=== PATIENT | female | born 1980 | race Caucasian/White ===

== ENCOUNTER 2016-05-31 09:59 | Emergency (ER) | payer BC, OTHER ==
[~2016-05-31] VITALS: Ht 170.2 cm; Wt 83.3 kg
[~2016-05-31 09:59] MED LIST: BACL10TA PO; CLR10 PO; DOXE50CA3 PO; ESTR1.252 PO; FLV1 PO; LAMO150T32 PO; MULT-506 PO; OXCA600T2 PO; THIA100T11 PO
[2016-05-31 10:11] VITALS: TEMP 36.7; Ht 170.2 cm; Wt 83.3 kg
[2016-05-31] MEDS ORDERED: TRAZ100T29 PO (10:27)
[2016-05-31] MEDS ORDERED: KETOROLAC TROMETHAMINE 60 MG/2 ML VIAL IM STA (10:38)
--- NOTE | 2016-05-31 11:14 | DIAGNOSTIC IMAGING REPORT ---
L-SPINE MIN 4 VIEWS ROUTINE CLINICAL HISTORY: Right-sided lower back pain. Recent trauma. COMPARISON STUDY: No previous studies for comparison. FINDINGS: No fractures or subluxation are visualized. There are 5 lumbar type vertebral bodies. No destructive lesions are visualized. IMPRESSION: No fractures or subluxations identified Electronically signed by: Michael Alejo M.D. 05/31/2016 11:12 AM Dictated Date/Time: 05/31/2016 11:11 AM
[2016-05-31] MEDS ORDERED: CARI350T28 PO (11:31)
[2016-05-31] MEDS ORDERED: HYDR-5688 PO (11:31)
[2016-05-31 11:43] VITALS: BP 120/75; PULSE 88; O2SAT 99
--- NOTE | 2016-05-31 17:55 | EMERGENCY ROOM VISIT NOTE ---
ED Visit Note First contact with patient: 10:22 CHIEF COMPLAINT: Low back pain HISTORY OF PRESENT ILLNESS: This 36-year-old white female patient complains of pain in the low back which began 2 days ago. She states she fell and landed on her low back. She has a chronic history of back pain. The pain was gradual in onset, is now constant and worse with movement. Denies any bowel or bladder difficulties. There has been no leg numbness or weakness. No vomiting or abdominal pain. Positive prior history of similar pain. Her pain Is 10/10. No treatment yet. She states her is outside in the car. REVIEW OF SYSTEM: HEENT: No dizziness, visual problems, hearing loss, or tinnitus. There is no difficulty swallowing and no oral lesions are present. LYMPH: No adenopathy. PULMONARY: No cough, shortness of breath, sputum production or hemoptysis. CARDIOVASCULAR: No chest pain, palpitations, shortness of breath or peripheral edema. GASTROINTESTINAL: No diarrhea, constipation, nausea, vomiting, or abdominal pain. GENITOURINARY: No dysuria, frequency, urgency or nocturia. NEUROLOGIC: No weakness, muscle tenderness, epilepsy or history of neurological problems. MUSCULOSKELETAL: No history of joint tenderness/swelling. No history of arthritis or arthralgias. SKIN: No rashes or lesions. ENDOCRINE: No history of diabetes, thyroid disorders, or abnormal hair growth. PMH: Supplemental sheet was reviewed and signed. Previous surgeries: None Medical history: Significant for history of pneumonia and chronic back pain Current medications: Reviewed and filed in patient's chart Allergies: NKDA SOCIAL HISTORY: Patient lives at home with her . Positive tobacco use, positive EtOH use. Unemployed. PHYSICAL EXAM: Vital Signs: Afebrile. Reviewed and filed in patient's chart. General: Well-developed, well-nourished, young white female, in no obvious discomfort. No acute distress. She is sitting on the bed. She is smiling at times. Alert and oriented. Skin:Warm and dry with good turgor. No rashes or lesions. No ecchymosis or erythema. The patient is not diaphoretic. No abrasions. Tattoos present on her lumbar spine. NECK: Supple, non-tender. Musculoskeletal: There is severe tenderness in the paraspinous muscles in the lumbar area and over the sacrum. Pain response is out of proportion to the pressure of touch. No tenderness over the spinous processes or discs spaces of the lumbar vertebrae. Range of motion of the back is limited secondary to pain , especially with rotation. Lower extremities have normal strength including dorsi-flexion and plantar flexion of the feet. No pain with hip flexion of the left leg. She complains of right low back pain with flexion of the right leg. Worst discomfort is over the right SI joint extending to the right her spinal musculature. No pain over the buttocks or greater trochanters. Neurologic: normal and symmetrical knee and ankle reflexes. Gross sensation is intact across the lower extremities by soft touch. Peripheral pulses are 2+. EMERGENCY DEPARTMENT COURSE: XXXXX DIAGNOSIS: Right Lumbar back pain DISCHARGE INSTRUCTIONS AND TREATMENT: Patient was educated regarding today's findings. Conservative care measures were discussed. She did receive Toradol 60 mg IM in the ED. She states there was no relief. Gentle stretching daily. Ice to the back intermittently over the next 3 days, and then use moist heat. Avoid any heavy lifting x5 days. See your own doctor or an orthopedist in 4 - 5 days if you are not improving. She was prescribed Soma 350 mg every 6 hours if needed for spasm and pain. Driving precautions were given. She did request for additional pain medication for breakthrough pain. I did provide her with a very small amount of [place] 5 mg to be used 1 tablet every 6 hours as needed. Driving precautions were given. PDMP website was checked. No concerning habits or prescriptions were found. Distant history of large oxycodone prescriptions last year. Problem List Medical Problems: (1) Bipolar affective disorder, current episode depression Status: Chronic Current/Historical Medications Scheduled Doxepin (Sinequan), 50 MG PO HS Estrogens, Conjugated (Premarin), 1.25 MG PO DAILY Lamotrigine (Lamictal), 150 MG PO BID Trazodone Hcl (Trazodone), 300 MG PO HS Scheduled PRN Carisoprodol (Soma), 350 MG PO Q6H PRN for Pain Hydrocodone/Acetaminophen 5MG/325MG ([place] 5MG/325MG), 1 TABLET PO Q6 PRN for Pain Allergies Coded Allergies: Egg (Unverified Allergy, Unknown, _, 05/31/16) Milk (Unverified Allergy, Unknown, _, 05/31/16) Peanut (Unverified Allergy, Unknown, _, 05/31/16) Vital Signs Date Time Temp Pulse Resp B/P Pulse Ox O2 Delivery O2 Flow Rate FiO2 05/31/16 11:43 88 16 120/75 99 05/31/16 10:11 36.7 87 17 124/85 98 Room Air Medications Administered Medications (Trade) Dose Ordered Sig/Lizeth Route Start Time Stop Time Status Last Admin Dose Admin Ketorolac Tromethamine (Toradol Inj) 60 mg NOW STAT IM 05/31/16 10:38 05/31/16 10:39 DC 05/31/16 10:44 60 MG Departure Information Impression Primary Impression: SI (sacroiliac) joint dysfunction Additional Impression: Chronic back pain Dispostion Home / Self-Care Condition GOOD Prescriptions Hydrocodone/Acetaminophen 5MG/325MG ([place] 5MG/325MG) Tab 1 TABLET PO Q6 Y for Pain, #10 TAB For Initial Treatment Prov: Derick Barrientos,P.A. 05/31/16 Carisoprodol (Soma) 350 Mg Tab 350 MG PO Q6H Y for Pain, #16 TAB Prov: Derick Barrientos,P.A. 05/31/16 Forms HOME CARE DOCUMENTATION FORM, SPECIAL NARCOTICS INSTRUCTIONS, IMPORTANT VISIT INFORMATION Patient Instructions My [facility] Additional Instructions Follow-up with your PCP this week to discuss physical therapy referral Soma one pill every 6 hours as needed for pain/spasm-no driving Add [place] one tablet every 6 hours as needed for more severe pain-no driving Continue an anti-inflammatory such as ibuprofen 600 mg every 6 hours with food Gentle stretching daily Continue with ice intermittently to the low back and your TENS unit until symptoms resolve Problem Qualifiers
== END 2016-05-31 11:44 | disposition home or self-care (01) ==
LOC: C.EDB 10:01 → C.EDA 11:44
DX: M53.3 Sacrococcygeal disorders, not elsewhere classified (principal); M54.9 Dorsalgia, unspecified; F17.200 Nicotine dependence, unspecified, uncomplicated; F31.9 Bipolar disorder, unspecified